=== PATIENT | female | born 1995 | race Caucasian/White ===

== ENCOUNTER 2018-10-06 01:33 | Emergency (ER) | payer BC ==
[2018-10-06] MEDS ORDERED: Ibuprofen 800 MG Tab PO ONE (01:46)
--- NOTE | 2018-10-06 01:50 | EDM.PDOC ---
ED HPI GENERAL MEDICAL PROBLEM - General Chief Complaint: Upper Extremity Injury/Pain Stated Complaint: POSSIBLE BROKEN RIGHT ARM Time Seen by Provider: 10/06/18 01:40 - History of Present Illness INITIAL COMMENTS - FREE TEXT/NARRATIVE: HISTORY AND PHYSICAL: History of present illness: The patient is a healthy 22-year-old female who presents with complaints of pain to her right forearm after she fell up the stairs about 5-6 hours ago. When she fell she landed on the forearm directly not an outstretched hand and she has no other injuries. She didn't hit her head or face he did not pass out or blackout and she has no other extremity complaints of neck or back pain. She has been putting ice on the area and she took some [employer] back and body pain medication earlier for some backaches and she has not taken anything since 7 PM. She has no distal wrist or hand pain and no neurosensory changes in the hand. Review of systems: As per history of present illness and below otherwise all systems reviewed and negative. Past medical history: As per history of present illness and as reviewed below otherwise noncontributory. Surgical history: As per history of present illness and as reviewed below otherwise noncontributory. Social history: No reported history of drug or alcohol abuse. Family history: As per history of present illness and as reviewed below otherwise noncontributory. Physical exam: General: Well-developed well-nourished mildly overweight female who is nontoxic and vital signs were noted by me HEENT: Atraumatic, normocephalic, negative for conjunctival pallor or scleral icterus, mucous membranes moist, throat clear, neck supple, nontender, trachea midline. Lungs: Clear to auscultation, breath sounds equal bilaterally, chest nontender. Heart: S1S2, regular rate and rhythm no overt murmurs Abdomen: Soft, nondistended, nontender. NABS Pelvis: Stable nontender. Genitourinary: Deferred. Rectal: Deferred. Extremities: Atraumatic, with full range of motion of all extremities with the exception of the right forearm. Along the ulnar aspect of the soft tissue of the distal third of the forearm there is some soft tissue swelling appreciated with tenderness but no palpable bony deformity. The distal wrist hand and digits are all intact without tenderness defects or deformities and Refill is normal and pulses are intact. The proximal forearm and elbow are intact without tenderness defects or deformities as is the radial head and the olecranon. More proximally the humerus clavicle and shoulder are intact without any tenderness defects or deformities. Neurovascular unremarkable. Neuro: Awake, alert, oriented. Cranial nerves II through XII unremarkable. Cerebellum unremarkable. Motor and sensory unremarkable throughout. Exam nonfocal. Diagnostics: X-ray right forearm Therapeutics: Motrin sling Impression: Right forearm contusion status post fall Definitive disposition and diagnosis as appropriate pending reevaluation and review of above. Right Lower Arm Pain Score (Numeric/FACES): 8 - Related Data Allergies Allergy/AdvReac Type Severity Reaction Status Date / Time Penicillins Allergy Hives Verified 10/06/18 01:45 Home Meds: Home Meds Levothyroxine 125 mcg PO DAILY 10/06/18 [History] Review of Systems - Review of Systems Review Of Systems: ROS reveals no pertinent complaints other than HPI. ED EXAM, GENERAL - Physical Exam Exam: See Below (see dictation) Course - Vital Signs Last Recorded V/S: Last Vital Signs Temp 36.7 C 10/06/18 01:40 Pulse 98 10/06/18 01:40 Resp 18 10/06/18 01:40 BP 140/86 10/06/18 01:40 Pulse Ox 98 10/06/18 01:40 - Orders/Labs/Meds Orders: Active Orders 24 hr Category Date Time Status Forearm 2V Rt [CR] Stat Exams 10/06/18 01:46 Taken DME for Discharge [COMM] Stat Oth 10/06/18 02:10 Ordered Meds: Medications Discontinued Medications Generic Name Dose Route Start Last Admin Trade Name Pari PRN Reason Stop Dose Admin Ibuprofen 800 mg 10/06/18 01:46 10/06/18 01:58 Motrin PO 10/06/18 01:47 800 mg ONETIME ONE Administration Ibuprofen Confirm 10/06/18 01:55 Motrin Administered 10/06/18 01:56 Dose 800 mg .ROUTE .STK-MED ONE Departure - Departure Time of Disposition: 02:16 Disposition: Home, Self-Care 01 Condition: Good Clinical Impression: Contusion of right forearm Qualifiers: Encounter type: initial encounter Qualified Code(s): S50.11XA - Contusion of right forearm, initial encounter - Discharge Information Referrals: Jean Heredia MD [Primary Care Provider] - Forms: ED Department Discharge Additional Instructions: The following information is given to patients seen in the emergency department who are being discharged to home. This information is to outline your options for follow-up care. We provide all patients seen in our emergency department with a follow-up referral. The need for follow-up, as well as the timing and circumstances, are variable depending upon the specifics of your emergency department visit. If you don't have a primary care physician on staff, we will provide you with a referral. We always advise you to contact your personal physician following an emergency department visit to inform them of the circumstance of the visit and for follow-up with them and/or the need for any referrals to a consulting specialist. The emergency department will also refer you to a specialist when appropriate. This referral assures that you have the opportunity for followup care with a specialist. All of these measure are taken in an effort to provide you with optimal care, which includes your followup. Under all circumstances we always encourage you to contact your private physician who remains a resource for coordinating your care. When calling for followup care, please make the office aware that this follow-up is from your recent emergency room visit. If for any reason you are refused follow-up, please contact the [facility] emergency department at and ask to speak to the emergency department charge nurse. [facility] Primary care- Internal Medicine and Family [place] [id number] [place] [id number] [facility] Specialty Care--Orthopedic clinic Professional [address] [address] Ice and elevate the area and use sling for the next 1-2 days for support and to reduce swelling. Use [id number] Tylenol or ibuprofen for pain and call and schedule a follow-up appointment with either primary care or our clinic for further care and evaluation. Return to ER as needed and as discussed - My Orders Last 24 Hours: My Active Orders 10/06/18 01:46 Forearm 2V Rt [CR] Stat 10/06/18 02:10 DME for Discharge [COMM] Stat - Assessment/Plan Last 24 Hours: My Active Orders 10/06/18 01:46 Forearm 2V Rt [CR] Stat 10/06/18 02:10 DME for Discharge [COMM] Stat
[2018-10-06] MEDS ORDERED: Ibuprofen 800 MG Tab ONE (01:55)
--- NOTE | 2018-10-06 02:33 | CR ---
INDICATION: Arm pain after fall. COMPARISON: None available. TECHNIQUE: AP and lateral views of the right forearm were obtained for a total of two views. FINDINGS: There is no sign of fracture or dislocation. The visualized elbow and wrist are normal in appearance. The soft tissue planes are preserved. There is no opaque foreign body. IMPRESSION: Normal right forearm. Dictated by Suleiman Pepper MD @ Oct 06 2018 2:31AM Signed by Dr. Suleiman Pepper @ Oct 06 2018 2:32AM
== END 2018-10-06 02:26 | disposition home or self-care (01) ==
LOC: MW.ED 01:33
DX: S50.11XA Contusion of right forearm, initial encounter (principal); Z88.0 Allergy status to penicillin; Z79.899 Other long term (current) drug therapy; W10.9XXA Fall (on) (from) unspecified stairs and steps, initial encounter
CPT/HCPCS: 73090; 99283; A9270